=== PATIENT | male | born 1930 | race Caucasian/White ===

== ENCOUNTER 2017-05-10 06:49 | Emergency (ER) | payer MEDICARE ==
[~2017-05-10] VITALS: Ht 188 cm; Wt 74.8 kg
[2017-05-10 06:49] VITALS: BP_SYST 125
[2017-05-10] MEDS ORDERED: NACL 0.9% 1,000 ML IV ONE (06:59)
[2017-05-10] MEDS ORDERED: LISI2.5T48 PO (07:14)
[2017-05-10] MEDS ORDERED: TAMS-11 PO (07:14)
[2017-05-10] MEDS ORDERED: MULT-1165 PO (07:15)
[2017-05-10] MEDS ORDERED: ASPI-1063 PO (07:15)
[2017-05-10] MEDS ORDERED: CHOL100062 PO (07:15)
[2017-05-10] MEDS ORDERED: GLUC-236 PO (07:16)
[2017-05-10 07:32] LABS: BASOPHILS # (AUTO) 0.2 K/uL (0.0-0.2); BASOPHILS % (AUTO) 2.5 % (0.0-2.0); EOSINOPHILS % (AUTO) 0.5 % (0.0-4.0); HEMATOCRIT 42.6 % (36-54); HEMOGLOBIN 14.4 g/dL (14.0-18.0); LYMPHOCYTES # (AUTO) 0.9 K/uL (1.0-5.5); LYMPHOCYTES % (AUTO) 13.6 % (20.5-51.5); MEAN CORPUSCULAR HEMOGLOBIN 33 pg (27-31); MEAN CORPUSCULAR HGB CONC 34 % (32-36); MEAN CORPUSCULAR VOLUME 97 fL (79.0-98.0); MONOCYTES # (AUTO) 0.8 K/uL (0.0-1.0); MONOCYTES % (AUTO) 13.4 % (1.7-9.3); NEUTROPHILS # (AUTO) 4.4 K/uL (1.8-7.7); PLATELET COUNT (AUTO) 152 K/uL (130-430); RED BLOOD CELL COUNT(AUTO) 4.39 MIL/uL (4.2-6.2); RED CELL DISTRIBUTION WIDTH 13.1 % (9.0-15.0); WHITE BLOOD COUNT (AUTO) 6.3 K/uL (4.8-10.8)
[2017-05-10 07:44] LABS: ANION GAP 13 (5-15); CALCIUM 9.3 mg/dL (8.4-11.0); CREATININE 1.15 mg/dL (0.55-1.30); GLUCOSE 97 mg/dL (70-99); POTASSIUM 3.8 mmol/L (3.5-5.1); UREA NITROGEN, BLOOD 16 mg/dL (8-21)
[2017-05-10 07:49] LABS: ALANINE AMINOTRANSFERASE 41 U/L (12-78); ALBUMIN 3.9 g/dL (3.4-4.8); ASPARTATE AMINOTRANSFERASE 64 U/L (10-37)
[2017-05-10 07:52] LABS: INR 1.1 (0.80-1.20)
[2017-05-10 07:53] LABS: CHLORIDE 84 mmol/L (98-107); SODIUM SERUM 119 mmol/L (136-145)
[2017-05-10] MEDS ORDERED: ASPIRIN 81 MG TAB.CHEW PO ONE (09:15)
[2017-05-10 09:46] LABS: BILIRUBIN,URINE NEGATIVE (NEGATIVE); CLARITY/URINE CLEAR (CLEAR); COLOR,URINE YELLOW (YELLOW); GLUCOSE,URINE NEGATIVE (NEGATIVE); KETONES,URINE 2+ (NEGATIVE); LEUKOCYTE ESTERASE ,URINE NEGATIVE (NEGATIVE); NITRITE, URINE NEGATIVE (NEGATIVE); PROTEIN URINE NEGATIVE (NEGATIVE); UROBILINOGEN,URINE 0.2 (0.2-1.0)
[2017-05-10 09:55] LABS: BLOOD, URINE TRACE (NEGATIVE)
[2017-05-10 10:07] LABS: RBC,URINE 0-3 /HPF (0-3)
[2017-05-10 10:08] LABS: BACTERIA,URINE FEW /HPF (None Seen)
[2017-05-10 12:31] VITALS: BP_SYST 144
== END 2017-05-10 12:29 | disposition short-term general hospital (02) ==
LOC: SED 06:49
DX: S00.11XA Contusion of right eyelid and periocular area, initial encounter (principal); E87.1 Hypo-osmolality and hyponatremia; I10 Essential (primary) hypertension; N40.0 Benign prostatic hyperplasia without lower urinary tract symptoms; Z88.5 Allergy status to narcotic agent; Z88.6 Allergy status to analgesic agent; Z79.899 Other long term (current) drug therapy; W19.XXXA Unspecified fall, initial encounter; Y93.89 Activity, other specified; Y92.89 Other specified places as the place of occurrence of the external cause; Y99.8 Other external cause status
CPT/HCPCS: 36415; 70450; 71045; 80053; 81000; 82962; 84484; 85025; 85610; 85730; 93005; 96360; 96361; 99285; J7030